=== PATIENT | male | born 1985 | race Caucasian/White ===

== ENCOUNTER 2016-09-18 22:40 | Emergency (ER) | payer SELFPAY ==
[~2016-09-18] VITALS: Ht 170.2 cm; Wt 76.5 kg
[2016-09-18 23:34] VITALS: Ht 170.2 cm; Wt 76.5 kg
[2016-09-19 03:40] VITALS: BP 141/90; PULSE 63; RESP 16
--- NOTE | 2016-09-19 04:19 | ERD ---
ER Documentation Chief Complaint Date/Time DATE: 09/19/16 TIME: 04:16 Chief Complaint blood in stool per patient report HPI This patient is a 31-year-old male presenting to the emergency department for one episode of blood in his stool which occurred this morning. He has had no other bowel movement since then. The patient is taken no medication for relief of symptoms. He states the blood was bright red in color. He denies pain on defecation. He has no history of hemorrhoids or other rectal abnormalities. There are no other symptoms to report currently. ROS All systems reviewed and are negative except as per history of present illness. PMhx/Soc Medical and Surgical Hx: pt denies Medical Hx, pt denies Surgical Hx History of Surgery: No Anesthesia Reaction: No Hx Neurological Disorder: No Hx Respiratory Disorders: No Hx Cardiac Disorders: No Hx Psychiatric Problems: No Hx Miscellaneous Medical Probl: No Hx Alcohol Use: Yes Hx Substance Use: No Hx Tobacco Use: Yes Smoking Status: Current some day smoker FmHx Noncontributory for chief complaint Physical Exam Vitals Vital Signs Date Time Temp Pulse Resp B/P Pulse Ox O2 Delivery O2 Flow Rate FiO2 09/19/16 03:40 63 16 141/90 99 Room Air 09/18/16 23:34 98.0 79 18 149/87 99 Physical Exam Const: The patient is resting comfortably in no acute distress. Head: Atraumatic Eyes: Normal Conjunctiva ENT: Normal External Ears, Nose and Mouth. Neck: Full range of motion..~ No meningismus. Resp: Clear to auscultation bilaterally Cardio: Regular rate and rhythm, no murmurs Abd: Soft, non tender, non distended. Normal bowel sounds Skin: No petechiae or rashes Back: No midline or flank tenderness Ext: No cyanosis, or edema Neur: Awake and alert Psych: Normal Mood and Affect RECTAL: Verbal Consent Obtained Sphincter tone is normal. No external hemorrhoids seen. There is a very small anal fissure noted to the 9 o'clock position with no active bleeding. There were no internal hemorrhoids. Non- tender to digital rectal palpation. No masses palpated. Guaiac negative. Control is positive. Results 24 hrs Laboratory Tests Test 09/19/16 01:30 Stool Occult Blood NEGATIVE Procedures/MDM 31-year-old male presents secondary to complaints of one episode of blood in the toilet earlier today. On physical examination the patient's vitals are within normal limits examination of the rectum reveals no hemorrhoids but there is a very small anal fissure without active bleeding to the 9 o'clock position. This is most likely the source of the bleeding that the patient's on the toilet earlier today. The patient understands the discharge plan and diagnosis. The patient is to have close follow-up with his primary care physician. All questions and concerns were addressed. Strict ER return precautions were discussed. A guaiac card was sent to the lab and was negative for occult blood. Departure Diagnosis: Primary Impression: Anal fissure Condition: Fair Patient Instructions: Understanding Rectal Bleeding, Anal Fissure (Child) Ref[facility]: [facility] se burris hecho un examen mdico de control que le indica que no est en nelsy condicin que requiera tratamiento urgente en el Departamento de Emergencia. Un estudio ms profundo y el tratamiento de laguna condicin pueden esperar sin ningn riesgo hasta que usted sea atendida/o en el consultorio de laguna mdico o nelsy cl mane. Es responsabilidad suya arreglar nelsy jerilyn para el seguimiento del elver. MANEJO DE CONDICIONES NO URGENTES EN EL FUTURO 1) Si usted tiene un mdico de atencin primaria: Usted debera llamar a laguna mdico de atencin primaria antes de venir al departamento de emergencia. Despus de las horas de consultorio, laguna doctor o laguna asociado/a est disponible por telfono. El mdico o enfermero de bri en el servicio telefnico puede asesorarle por minnie medio para atender el problema, o elver contrario se puede programar nelsy jerilyn. 2) Si usted no tiene un mdico de atencin primaria: Llame al mdico o clnica de referencia que aparece abajo rodríguez las horas de consultorio para hacer nelsy jerilyn para que le vean. CLINICAS: [facility] [phone] [facility] [phone] [facility] [phone] [facility] [phone] [facility] [phone] [address] [facility]. [phone] [address] Additional Instructions: No mas mejor en 2-3 palomo, regresar. Mas peor en 24 horas, regresear rapidamente. Ir a doctor primario in 5-7 palomo. Usar instrucciones cuando onur medicamento. SLADE CURTIS PA-C September 19, 2016 04:19
== END 2016-09-19 03:42 | disposition home or self-care (01) ==
LOC: FTE 22:40
DX: K60.2 Anal fissure, unspecified (principal); F17.210 Nicotine dependence, cigarettes, uncomplicated
CPT/HCPCS: 82270; 99283